=== PATIENT | female | born 1960 | race Caucasian/White ===

== ENCOUNTER 2017-08-01 17:01 | Inpatient (IN) | payer MEDICAID ==
--- NOTE | 2017-08-01 18:33 | EDPHY ---
H & P Stated Complaint: l sided abd pain /cervical cancer Time Seen by Provider: 08/01/17 17:33 HPI/ROS: CHIEF COMPLAINT: Left-sided abdominal pain HISTORY OF PRESENT ILLNESS: 56-year-old female with newly diagnosed cervical cancer presents with left-sided abdominal pain. 1 month ago she had the acute onset of left sided abdominal pain and ultimately was diagnosed with ureteral obstruction from a tumor. Bilateral ureteral stents were placed and further diagnostic studies revealed locally advanced cervical cancer. She has not received treatment for the cervical cancer yet. Planning for XRT and chemotherapy. Onset left-sided abdominal pain this morning. The pain was severe and has waxed and waned throughout the day. Associated with chills and possible fever. This pain is different from the pain she had 1 month ago. REVIEW OF SYSTEMS: complete 10 point ROS negative except at noted in the HPI - Personal History LMP (Females 10-55): Post Menopausal Current Tetanus Diphtheria and Acellular Pertussis (TDAP): No - Medical/Surgical History Hx Asthma: No Hx Chronic Respiratory Disease: No Hx Diabetes: No Hx Cardiac Disease: No Hx Renal Disease: Yes Hx Cirrhosis: No Hx Alcoholism: No Hx HIV/AIDS: No Hx Splenectomy or Spleen Trauma: No Other PMH: bilat kidney stents/cervical cancer - Social History Smoking Status: Never smoked Alcohol Use: Sober - Physical Exam Exam: General Appearance: Alert, pleasant Eyes: Pupils equal and round, no conjunctival pallor or injection ENT, Mouth: Mucous membranes moist Neck: Normal inspection Respiratory: Lungs are clear to auscultation Cardiovascular: Regular rate and rhythm Gastrointestinal: Abdomen is soft, slight left upper quadrant tenderness Neurological: A&O, nonfocal exam Skin: Warm and dry, no rash Extremities: Nontender, no pedal edema Psychiatric: Mood and affect normal Constitutional: Initial Vital Signs Temperature (C) 36.3 C 08/01/17 17:06 Heart Rate 94 08/01/17 17:06 Respiratory Rate 18 08/01/17 17:06 Blood Pressure 108/64 08/01/17 17:06 O2 Sat (%) 100 08/01/17 17:06 O2 Delivery Mode Room Air Allergies/Adverse Reactions: Sulfa (Sulfonamide Antibiotics) Allergy (Verified 08/02/17 15:08) Hives artificial sweeteners Allergy (Uncoded 08/01/17 17:06) Home Medications: Medication Instructions Recorded Acetaminophen [Tylenol ES 500 mg 1,000 mg PO Q8H PRN 08/01/17 (*)] Herbals/Supplements -Info Only 1 ea PO DAILY 08/01/17 Medical Decision Making ED Course/Re-evaluation: This patient presents with left upper quadrant pain. Urinalysis reveals urinary tract infection. CT scan discussed with Dr. Tracy Quintero reveals moderate hydronephrosis, severe constipation and rectal inflammation. Clinical scenario consistent with infected ureteral stent, ?rectal obstruction. Urine culture sent. Rocephin 1 g IV given. Morphine IV given for pain control. The hospitalist service was consulted for admission. Differential Diagnosis: Differential diagnosis includes though it is not limited to appendicitis, cholecystitis, diverticulitis, pyelonephritis, bowel perforation, small bowel obstruction. - Data Points Laboratory Results: Laboratory Results 08/02/17 04:20 08/02/17 04:20 Microbiology Results: MICROBIOLOGY 08/01/17 18:33 Urine,Clean Catch Urine Culture - Final Escherichia Coli Strep Agalactiae Group B Medications Given: Acetaminophen (Tylenol) 650 mg PO Q4HRS PRN PRN Reason: Pain, Mild/Fever, Can Take PO Stop: 01/28/18 22:09 Last Admin: 08/03/17 11:18 Dose: 650 mg Enoxaparin Sodium (Lovenox) 40 mg SC DAILY MICAELA Stop: 01/29/18 08:59 Last Admin: 08/03/17 09:29 Dose: Not Given Ceftriaxone Sodium/Dextrose (Rocephin 1 Gm (Premix)) 50 mls @ 100 mls/hr IV DAILY@2100 MICAELA PRN Reason: Protocol Stop: 09/01/17 20:59 Last Admin: 08/02/17 20:54 Dose: 50 mls Polyethylene Glycol (Miralax) 17 gm PO DAILY PRN; Protocol PRN Reason: Constipation, patient prefers Stop: 01/28/18 23:15 Last Admin: 08/02/17 10:12 Dose: 17 gm Discontinued Medications Hydromorphone HCl (Dilaudid) 0.5 mg IVP EDNOW ONE Stop: 08/01/17 19:52 Last Admin: 08/01/17 19:54 Dose: 0.5 mg Ceftriaxone Sodium/Dextrose (Rocephin 1 Gm (Premix)) 50 mls @ 100 mls/hr IV EDNOW ONE PRN Reason: Protocol Stop: 08/01/17 19:03 Last Admin: 08/01/17 18:51 Dose: 50 mls Pyridoxine HCl (Vitamin B-6) 25 mg PO DAILY MICAELA Stop: 01/30/18 09:29 Last Admin: 08/03/17 10:50 Dose: Not Given Senna/Docusate Sodium (Senokot-S) 1 - 2 tab PO BID MICAELA PRN Reason: Protocol Stop: 01/29/18 08:59 Last Admin: 08/02/17 08:32 Dose: 2 tab Departure - Departure Disposition: [place] In[facility] Acute Clinical Impression: Infection associated with indwelling ureteral stent Qualifiers: Encounter type: initial encounter Qualified Code(s): T83.592A - Infection and inflammatory reaction due to indwelling ureteral stent, initial encounter Cervical cancer Qualifiers: Malignant neoplasm of cervix location: unspecified location Qualified Code(s): C53.9 - Malignant neoplasm of cervix uteri, unspecified Condition: Fair
[2017-08-01 18:44] LABS: PLATELET COUNT 187 10^3/uL (150-400)
[2017-08-01] MEDS ORDERED: IOPAMIDOL (ISOVUE-300) 100 ML BTL ONE (19:04)
[2017-08-01] MEDS ORDERED: HYDROmorphONE/DILAUDID 2 MG/ML INJ IVP ONE (19:51)
[2017-08-01] MEDS ORDERED: ONDANSETRON DISINTEGRATING 4 MG TAB PO PRN (22:10)
[2017-08-01] MEDS ORDERED: ONDANSETRON 4 MG/2 ML VIAL IVP PRN (22:10)
--- NOTE | 2017-08-01 23:02 | PDGENHP ---
History and Physical - Chief Complaint Abdominal pain - History of Present Illness 56 yo F w/ recently diagnosed cervical CA presents with abdominal pain. Starting today she noted left sided abdominal pain that evolved into flank pain. She also noted chills and mild dysuria. She presented to the ED where a UA was consistent with infection. Her recent clinical course is notable for bilateral ureteral stent placement. The excerpt below from radiation oncologist at [facility] Dr. Jurado explains her course well: "This is a very pleasant 56-year-old female who developed left lower quadrant abdominal pain on 06/20/17. She presented to the emergency department in [place] where a CT scan without contrast revealed bilateral hydroureter and hydronephrosis. There was no comment about any cervical mass or adenopathy. She was transferred to [facility] where she had a cystoscopy with bilateral ureteral stent placement. During cystoscopy, a bulge was appreciated at the trigone of the bladder consistent with an obstructing mass thought to originate within the cervix. A pelvic exam performed at the end of procedure did confirm a cervical mass. She was evaluate a by ObGyn during her stay and a nodular cervical mass was also appreciated. She was then referred to Dr. Khan on 06/27/17. He appreciated a nodular hard cervical mass and performed a biopsy revealing invasive moderately to poorly differentiated squamous cell carcinoma that was P16 positive (High-Risk HPV). She had a PET/CT scan performed on revealing a 1.5 cm hypermetabolic mass with in the lower uterine segment. The maximum SUV was 6.3. There was improved bilateral hydronephrosis and no evidence of metastatic adenopathy or distant metastatic disease. She comes in today to discuss definitive treatment for her FIGO/AJCC group stage IIIB cervical cancer." History Information - Allergies/Home Medication List Allergies/Adverse Reactions: Sulfa (Sulfonamide Antibiotics) Allergy (Verified 08/01/17 17:06) artificial sweeteners Allergy (Uncoded 08/01/17 17:06) Home Medications: Acetaminophen [Tylenol ES 500 mg (*)] 1,000 mg PO Q8H PRN 08/01/17 [Last Taken 08/01/17 12:00] Herbals/Supplements -Info Only 1 ea PO DAILY 08/01/17 [Last Taken 07/31/17] I have personally reviewed and updated: family history, medical history - Past Medical History cancer (Cervical) - Surgical History Additional surgical history: Bilateral ureteral stent placement - Family History Positive for: cancer (Colon, prostate) - Social History Smoking Status: Never smoked Alcohol Use: Sober Review of Systems Review of Systems: ROS: 10pt was reviewed & negative except for what was stated in HPI & below Physical Exam Physical Exam: Temp Pulse Resp BP Pulse Ox 36.8 C 98 16 111/62 94 08/01/17 22:47 08/01/17 22:47 08/01/17 22:47 08/01/17 22:47 08/01/17 22:47 Constitutional: no apparent distress, not in pain Eyes: PERRL, EOMI Ears, Nose, Mouth, Throat: moist mucous membranes, no oral mucosal ulcers Cardiovascular: regular rate and rhythym, no murmur, rub, or gallop Respiratory: no respiratory distress, clear to auscultation Gastrointestinal: normoactive bowel sounds, soft, non-tender abdomen Genitourinary: other (+L CVAT) Skin: warm, normal color Musculoskeletal: full muscle strength, no muscle tenderness Neurologic: AAOx3, CN II-XII Intact Psychiatric: interacting appropriately, not anxious Lab Data & Imaging Review 08/01/17 18:01 08/01/17 18:01 WBC 14.13 10^3/uL (3.80-9.50) H 08/01/17 18: RBC 4.36 10^6/uL (4.18-5.33) 08/01/17 18:01 Hgb 13.1 g/dL (12.6-16.3) 08/01/17 18:01 Hct 38.5 % (38.0-47.0) 08/01/17 18:01 MCV 88.3 fL (81.5-99.8) 08/01/17 18:01 MCH 30.0 pg (27.9-34.1) 08/01/17 18: MCHC 34.0 g/dL (32.4-36.7) 08/01/17 18:01 RDW 13.5 % (11.5-15.2) 08/01/17 18: Plt Count 187 10^3/uL (150-400) 08/01/17 18:01 MPV 11.3 fL (8.7-11.7) 08/01/17 18:01 Neut % (Auto) 81.1 % (39.3-74.2) H 08/01/17 18:01 Lymph % (Auto) 8.5 % (15.0-45.0) L 08/01/17 18:01 [place] % (Auto) 6.3 % (4.5-13.0) 08/01/17 18:01 Eos % (Auto) 3.3 % (0.6-7.6) 08/01/17 18:01 Baso % (Auto) 0.4 % (0.3-1.7) 08/01/17 18:01 Nucleat RBC Rel Count 0.0 % (0.0-0.2) 08/01/17 18:01 Absolute Neuts (auto) 11.46 10^3/uL (1.70-6.50) H 08/01/17 18:01 Absolute Lymphs (auto) 1.20 10^3/uL (1.00-3.00) 08/01/17 18:01 Absolute Monos (auto) 0.89 10^3/uL (0.30-0.80) H 08/01/17 18:01 Absolute Eos (auto) 0.46 10^3/uL (0.03-0.40) H 08/01/17 18:01 Absolute Basos (auto) 0.06 10^3/uL (0.02-0.10) 08/01/17 18:01 Absolute Nucleated RBC 0.00 10^3/uL (0-0.01) 08/01/17 18:01 Immature Gran % 0.4 % (0.0-1.1) 08/01/17 18:01 Immature Gran # 0.06 10^3/uL (0.00-0.10) 08/01/17 18:01 Sodium 138 mEq/L (135-145) 08/01/17 18:01 Potassium 4.1 mEq/L (3.3-5.0) 08/01/17 18:01 Chloride 102 mEq/L (97-110) 08/01/17 18:01 Carbon Dioxide 15 mEq/l (22-31) L 08/01/17 18:01 Anion Gap 21 mEq/L (8-16) H 08/01/17 18:01 BUN 23 mg/dL (7-23) 08/01/17 18:01 Creatinine 1.2 mg/dL (0.6-1.0) H 08/01/17 18:01 Estimated GFR 47 08/01/17 18:01 Glucose 77 mg/dL (70-100) 08/01/17 18:01 Calcium 10.3 mg/dL (8.5-10.4) 08/01/17 18:01 Urine Color YELLOW 08/01/17 17:00 Urine Appearance MODERATELY TURBID 08/01/17 17:00 Urine pH 5.0 (5.0-7.5) 08/01/17 17:00 Ur Specific [place] 1.015 (1.002-1.030) 08/01/17 17:00 Urine Protein 2+ (NEGATIVE) H 08/01/17 17:00 Urine Ketones 1+ (NEGATIVE) H 08/01/17 17:00 Urine Blood 3+ (NEGATIVE) H 08/01/17 17:00 Urine Nitrate POSITIVE (NEGATIVE) H 08/01/17 17:00 Urine Bilirubin NEGATIVE (NEGATIVE) 08/01/17 17:00 Urine Urobilinogen NEGATIVE EU (0.2-1.0) 08/01/17 17:00 Ur Leukocyte Esterase 3+ (NEGATIVE) H 08/01/17 17:00 Urine RBC 50-182 /hpf (0-3) H 08/01/17 17:00 Urine WBC 50-182 /hpf (0-3) H 08/01/17 17:00 Ur Epithelial Cells TRACE /lpf (NONE-1+) 08/01/17 17:00 Urine Bacteria 3+ /hpf (NONE SEEN) H 08/01/17 17:00 Urine Mucus TRACE /lpf (NONE-1+) 08/01/17 17:00 Urine Glucose NEGATIVE (NEGATIVE) 08/01/17 17:00 Imaging Review: Imaging Impressions Abdomen CT 08/01/17 18:59 Impression: 1. Moderate left-sided hydronephrosis. Whether this correlates to a nonfunctional stent is debatable. It seems that patients with ureteral stents almost always have some degree of hydronephrosis by imaging that may or may not correlate to functionality of the stents. Discussion with Urology is suggested. 2. Small right kidney suggestive of chronic right renal insufficiency. 3. Severe constipation, with multiple pills scattered throughout the colon. 4. Circumferential rectal wall thickening for a long segment of the rectum distally. Indistinct fat plane between the lower uterine segment and the rectum. This raises the differential of cervical cancer invasion to the rectum. 5. Focal high-grade narrowing in the mid rectum due to circumferential wall thickening. Could this be the cause of severe constipation? Has the patient had bowel habit change? Findings and recommendations discussed with Vangie Feng M.D., at 8:53 p.m. , August 01, 2017. Final report concurs with initial preliminary interpretation. E:amm Assessment & Plan Assessment: 56 yo F w/ cervical CA p/w UTI in the setting of recently placed ureteral stent. Plan: 1. Complicated UTI - Symptoms x1 day, UA grossly infectious with WBC of 14k. Patient has been afebrile and hemodynamically stable while here. Associated with recently placed ureteral stent. - CTX 1 gD, urine culture pending, would treat for at least 7 days - Unfortunately, blood cultures not drawn prior to antibiotics. I will have them drawn if she begins to display signs of a systemic inflammatory responsive , otherwise I will hold off - Case discussed with Dr. Gutierrez 2. Moderate L sided hydronephrosis - This is improved from CT imaging performed in June at outside facility. Noting her renal function is improving, this may be somewhat chronic. As long as patient continues to improve it is probably appropriate for outpatient follow up. 3. Cervical cancer - FIGO/AJCC group stage IIIB cervical cancer; she has undergone planning for chemo/XRT at [facility] with Dr. Trevor Jurado. - Will not consult our oncologists for now noting she already has a treatment plan in place elsewhere 4. Constipation -Could be related to rectal narrowing from cancerous invasion. - Will start gentle bowel regimen, titrate as necessary 5. Rectal wall thickening - Possibly suggestive of cervical CA invasion into the rectum. Interestingly, this was not commented on during pelvic MRI [facility] 07[facility]27[facility] 6. Elevated serum creatinine - 1.2 on admission; review of records reveals recent value of 1.5 on labs drawn 06/21 at [facility]. Patient tells me she had ureteral dilation as a child so there may be a chronic component. - Monitor BMP - Avoid nephrotoxic agents Diet - Regular Code - Full Ppx - LMWH Dispo - Admit under observation status
[2017-08-01] MEDS ORDERED: BISACODYL 10 MG SUPP PR PRN (23:16)
[2017-08-01] MEDS ORDERED: POLYETHYLENE GLYCOL 3350 17 GM PKT PO PRN (23:16)
[2017-08-01] MEDS ORDERED: MAGNESIUM HYDROXIDE 30 ML UDCUP PO PRN (23:16)
[2017-08-01] MEDS ORDERED: LACTULOSE 20 GM/30 ML UDCUP PO PRN (23:16)
[2017-08-01] MEDS: ACETAMINOPHEN 325 MG TAB PO PRN (23:23)
[2017-08-02] MEDS: ACETAMINOPHEN 325 MG TAB PO PRN ×4 (04:20→20:48)
[2017-08-02 05:26] LABS: PLATELET COUNT 176 10^3/uL (150-400)
[2017-08-02] MEDS: ENOXAPARIN 40 MG/0.4 ML SYR SC SCH (08:33)
[2017-08-02] MEDS ORDERED: SENNOSIDES/DOCUSATE SODIUM TAB PO SCH (09:00)
--- NOTE | 2017-08-02 12:37 | ASMTCMCOM ---
CM Note CM Note Notes: CM reviewed Pt's chart for D/C planning. Pt is a 56 y/o/ female with a diagnosis of cervical cancer and a h/o bilateral uretal stent placement.. She is presenting today with abdominal pain, chills and pain upon urinating. She has a BF, alexander #[phone] and a brother Billy # [phone]. D/C plans are not clear at this point. CM will follow. D/C Plan: TBD Date Signed: 08/02/2017 12:36 PM Electronically Signed By:Macarena Dunlap
--- NOTE | 2017-08-02 13:55 | HOSPPROG ---
Hospitalist Progress Note Assessment/Plan: * Left flank pain - feels similar to pain prior to ureteral stent -left hydro behind stent - compared with previous scan - may be chronic -check Mag 3 with Lasix -clinically non-toxic - don't think nephrostomy tube emergently indicated * UTI vs. pyelo -IV ceftriaxone pending culture * High grade rectal stricture with constipation/stuck pills behind obstruction -d/w Dr. [facility] - no options endoscopically due to risk of rupture -surgical consult * Locally advanced cervical cancer -has not yet started chemo/XRT * CKD - creatinine better than baseline Subjective: Had some BM today Objective: Vital Signs Temp Pulse Resp BP Pulse Ox 36.8 C 92 16 101/62 95 08/02/17 07:21 08/02/17 07:21 08/02/17 07:21 08/02/17 07:21 08/02/17 07:21 Laboratory Results 08/02/17 04:20 08/02/17 04:20 08/01/17 08/02/17 08/03/17 05:59 05:59 05:59 Intake Total 820 Output Total 550 500 Balance 270 -500 CT abd reviewed - high grade rectal obstruction, ureteral stent with possible obstruction - Physical Exam Constitutional: no apparent distress, appears nourished, not in pain Cardiovascular: regular rate and rhythym, no murmur, rub, or gallop Respiratory: no respiratory distress, no rales or rhonchi, clear to auscultation Gastrointestinal: normoactive bowel sounds, soft, non-tender abdomen, no palpable masses Skin: no rashes or abrasions, no fluctuance, no induration Neurologic: AAOx3, sensation intact bilaterally Psychiatric: interacting appropriately, not anxious, not encephalopathic, thought process linear ICD10 Worksheet Patient Problems: Problems Problem Status Onset Cervical cancer Acute Infection associated with indwelling ureteral stent Acute
--- NOTE | 2017-08-02 14:52 | PDMN ---
Medical Necessity Medical necessity: Change to IP, as of 08/02/17, per MD; los >2 mn for ongoing management of UTI vs pyelonephritis, high grade rectal stricture w/constipation & L flank pain; admit for further workup/monitoring, Surgery/ID consults & IV abx; hx cervical cancer; per progress note & order 08/02/17
--- NOTE | 2017-08-02 18:36 | SOAPPROG ---
SOAP Progress Note Assessment/Plan: Assessment: 56-year-old female with metastatic cervical cancer which appears to be partly obstructing her rectum causing constipation and small stools Abdomen soft nontender with mild distention and active bowel sounds May need to consider colostomy if she worsens with chemo radiation treatment Plan: Will review CT and plan on rectal exam and possible flex sig in the a.m./ risks and options fully discussed 08/02/17 18:35 08/06/17 11:25 Objective: Vital Signs Temp Pulse Resp BP Pulse Ox 37.3 C 90 16 121/70 H 98 08/02/17 14:55 08/02/17 14:55 08/02/17 14:55 08/02/17 14:55 08/02/17 14:55 08/01/17 08/02/17 08/03/17 05:59 05:59 05:59 Intake Total 100 Output Total 1000 Balance -900 ICD10 Worksheet Patient Problems: Problems Problem Status Onset Atrophic kidney, acquired Acute Cervical cancer Acute Hydronephrosis Acute Infection associated with indwelling ureteral stent Acute
[2017-08-03] MEDS: ACETAMINOPHEN 325 MG TAB PO PRN ×3 (02:03→20:36)
[2017-08-03 05:03] LABS: PLATELET COUNT 161 10^3/uL (150-400)
[2017-08-03] MEDS ORDERED: FUROSEMIDE 40 MG/4 ML VIAL ONE (08:04)
[2017-08-03] MEDS ORDERED: oxyCODONE IR 5 MG TAB PO PRN (08:29)
[2017-08-03] MEDS ORDERED: traMADol 50 MG TAB PO PRN (08:32)
[2017-08-03] MEDS: ENOXAPARIN 40 MG/0.4 ML SYR SC SCH (09:29)
[2017-08-03] MEDS ORDERED: PYRIDOXINE HCL 25 MG TAB PO SCH (09:30)
--- NOTE | 2017-08-03 12:14 | ASMTCMCOM ---
CM Note CM Note Notes: CM met with Pt. Pt struggling with her new diagnosis of cervical cancer. She was able to speak of the emotiona she's experienced and her coping skills which include thoroughly educating herself as this lends a sense of empowerment. She was able to tell her mother this morning and shared that she felt a burden lifted. She described an additional stong support network of her BF and friends,. Pt would like integrative care in addition to convential treatment. She is presently scheduled to see a radiologist who did not present as supportive of this. She will be given info on CC and is doing some research on her own. CM will follow. D/C Plans: TBD. Date Signed: 08/03/2017 12:13 PM Electronically Signed By:Macarena Dunlap
--- NOTE | 2017-08-03 14:41 | GCON ---
[f rep st] CONSULTATION MEDICAL ONCOLOGY CONSULTATION DATE OF CONSULTATION: 08/03/2017 REASON FOR CONSULTATION: Ongoing workup and management of carcinoma of the cervical uterus. RECOMMENDATIONS: 1. Agree with gastrointestinal workup with Dr. Damon to try to assess whether the patient needs urge nt surgery to relieve bowel obstruction. 2. If the patient requires surgery, that would take precedence over definitive therapy for her cervi julia cancer. 3. If the patient does not need urgent surgery, then I would recommend urgent initiation of therapy with combined modality radiation plus weekly cisplatin chemotherapy for definitive therapy for cervic al cancer. 4. We will need to pay close attention to the patient's renal function in view of her bilateral hydr onephrosis and stents. Of note, 93% of her renal function comes from her left kidney secondary to da mage to her right kidney at approximately the age of 4. ASSESSMENT: This 56-year-old white female from [place], [place], recently was diagnosed with stage IIIB moderately to poorly differentiated squamous cell carcinoma of the cervix. She is P16 positive . She apparently had a PET-CT scan at an outside institution, which revealed a 1.5 cm hypermetabolic mass in the lower uterine segment. She was felt to have stage IIIB cancer. Combined modality thera py was planned. It is not yet begun. Because of her abdominal cramping and bowel symptoms, she presented to the [facility]'s emerge ncy room where she is now here for further evaluation. The patient's support system is her boyfriend who lives in [place] here. Since the patient does not have evidence of widespread metastatic disease on PET-CT scan, she would b e treated with curative intent. PAST MEDICAL HISTORY: Essentially otherwise unremarkable. PAST SURGICAL HISTORY: Remarkable for stent placement and biopsy. FAMILY HISTORY: Remarkable for colon and prostate cancer. SOCIAL HISTORY: The patient does not smoke. She does not use alcohol. REVIEW OF SYSTEMS: Remarkable for no current nausea or vomiting. She does have periodic severe abdo lee ann cramping, especially in the left lower quadrant. She is having some bowel movements. She has lost approximately 5 pounds in weight. Ten-system review is otherwise unremarkable. PHYSICAL EXAMINATION: GENERAL: Reveals a thin, pleasant, alert, oriented woman. HEENT: Unremarkab le. LUNGS: Clear to auscultation. CARDIAC: Exam reveals a regular rate and rhythm. ABDOMEN: Exa m shows a distended abdomen with tenderness primarily in the left lower quadrant. There is no reboun d tenderness noted. LYMPH NODE: Exam shows no palpable adenopathy in the neck, axillae, or groin bi laterally. EXTREMITIES: Lower extremities show no edema. LABORATORY DATA: White count of 8.78, with a hemoglobin of 11.9 and a platelet count of 161,000. Ch emistry shows her creatinine is 1.1. Her albumin is normal at 3.5. Her calcium is normal at 9.5. Thank you very much for allowing us to participate in this pleasant woman's care. We look forward to assisting with her management. /[id number]/MODL
--- NOTE | 2017-08-03 16:13 | SOAPPROG ---
SOAP Progress Note Assessment/Plan: Assessment: Atrophic kidney, acquired Acute stent in and nonfx with stent, no changes Cervical cancer Acute Hydronephrosis Acute need continue stent, doubt need replaced and could consider nephrostomy tube but prefer stent Infection associated with indwelling ureteral stent Acute rx acute UTI with E. Coli and strep and consider Methenamine 1 gram bid and vitamin C 500 mg bid for attempted prevention of UTI after rx Plan: as noted above 08/04/17 13:27 Subjective: stable Objective: Vital Signs Temp Pulse Resp BP Pulse Ox 36.6 C 104 H 16 138/73 H 91 L 08/03/17 08:00 08/03/17 15:50 08/03/17 15:50 08/03/17 15:50 08/03/17 15:50 Laboratory Results 08/03/17 04:02 08/03/17 04:02 08/02/17 08/03/17 08/04/17 05:59 05:59 05:59 Intake Total 1300 Output Total 1600 700 Balance -300 -700 ICD10 Worksheet Patient Problems: Problems Problem Status Onset Atrophic kidney, acquired Acute Cervical cancer Acute Hydronephrosis Acute Infection associated with indwelling ureteral stent Acute - ICD10 Problem Qualifiers (1) Hydronephrosis (2) Atrophic kidney, acquired
--- NOTE | 2017-08-03 16:35 | HOSPPROG ---
Hospitalist Progress Note Assessment/Plan: * Locally advanced cervical cancer -may need to start inpatient chemo/XRT * Left hydro s/p recent stent -minimally functional right kidney - need to preserve function of left -slow flow through stent on renal scan -consider change stent vs. nephrostomy tube * UTI vs. pyelo -IV ceftriaxone pending culture -infected stent with partial obstruction - may need more prolonged abx -d/w Dr. Watson * High grade rectal stricture with constipation/stuck pills behind obstruction -Dr. Damon to explore today, if tight stricture may need surgical ostomy * Acute on chronic renal failure -all renal function through left kidney which is partially obstructed -urology to consult Subjective: No new complaints. Objective: Vital Signs Temp Pulse Resp BP Pulse Ox 36.6 C 104 H 16 138/73 H 91 L 08/03/17 08:00 08/03/17 15:50 08/03/17 15:50 08/03/17 15:50 08/03/17 15:50 Laboratory Results 08/03/17 04:02 08/03/17 04:02 08/02/17 08/03/17 08/04/17 05:59 05:59 05:59 Intake Total 1300 Output Total 1600 700 Balance -300 -700 case d/w Dr. watson, marti graff and diana - complex case as discussed above Renal scan - right kidney almost non-functional, left with hydro and slow flow through stent - Physical Exam Constitutional: no apparent distress, appears nourished, not in pain Cardiovascular: regular rate and rhythym, no murmur, rub, or gallop Respiratory: no respiratory distress, no rales or rhonchi, clear to auscultation Gastrointestinal: normoactive bowel sounds, soft, non-tender abdomen, no palpable masses Skin: no rashes or abrasions, no fluctuance, no induration Neurologic: AAOx3, sensation intact bilaterally Psychiatric: interacting appropriately, not anxious, not encephalopathic, thought process linear ICD10 Worksheet Patient Problems: Problems Problem Status Onset Atrophic kidney, acquired Acute Cervical cancer Acute Hydronephrosis Acute Infection associated with indwelling ureteral stent Acute
--- NOTE | 2017-08-03 18:32 | SOAPPROG ---
SOAP Progress Note Assessment/Plan: Assessment: 56-year-old female with metastatic cervical cancer which appears to be partly obstructing her rectum causing constipation and small stools Abdomen soft nontender with mild distention and active bowel sounds May need to consider colostomy if she worsens with chemo radiation treatment Plan: Will review CT and plan on rectal exam impossible for flex sig in the a.m. 08/02/17 18:35 08/03/17 18:31 Doing better today/ will arrange flex sig today/risks and options fully discussed Objective: Vital Signs Temp Pulse Resp BP Pulse Ox 36.5 C 84 16 145/81 H 97 08/03/17 17:09 08/03/17 17:09 08/03/17 17:09 08/03/17 17:09 08/03/17 17:09 Laboratory Results 08/03/17 04:02 08/03/17 04:02 08/02/17 08/03/17 08/04/17 05:59 05:59 05:59 Intake Total 1300 200 Output Total 1600 700 Balance -300 -500 ICD10 Worksheet Patient Problems: Problems Problem Status Onset Atrophic kidney, acquired Acute Cervical cancer Acute Hydronephrosis Acute Infection associated with indwelling ureteral stent Acute
--- NOTE | 2017-08-03 18:35 | POSTOPPROG ---
Post Op Note Date of Operation: 08/03/17 Surgeon: Pipe Damon Anesthesia: Other (Specify) (None) Pre-op Diagnosis: Rectal stenosis secondary to cervical cancer Post-op Diagnosis: Same Indication: Evaluate for surgery Procedure: Flex sig Findings: Rigid upper rectum at 15 cm secondary to invasive cancer/poor bowel prep an Inf/Abcess present in the surg proc area at time of surgery?: No Depth: Organ Space EBL: Minimal Complications: None Specimen(s): None Findings revealed rigid rectum up to 15 cm. I was unable to make the turn at 15 cm because of poor visibility from lack of bowel prep but the upper rectal passage appears to be open from the volume of stool present
--- NOTE | 2017-08-03 18:44 | SOAPPROG ---
RASHI Progress Note Assessment/Plan: Assessment: 56-year-old female with metastatic cervical cancer which appears to be partly obstructing her rectum causing constipation and small stools Abdomen soft nontender with mild distention and active bowel sounds May need to consider colostomy if she worsens with chemo radiation treatment Plan: Will review CT and plan on rectal exam impossible for flex sig in the a.m. 08/02/17 18:35 08/03/17 18:31 Doing better today/ will arrange flex sig today/risks and options fully discussed 08/03/17 18:42 Flex sig incomplete secondary to rigidity of the rectum and poor bowel prep with poor visibility Will do a gentle bowel cleanse and enemas and schedule Gastrografin enema in the a.m. Initially it does not appear that the patient needs a colostomy immediately probable need further evaluation Objective: Vital Signs Temp Pulse Resp BP Pulse Ox 36.5 C 84 16 145/81 H 97 08/03/17 17:09 08/03/17 17:09 08/03/17 17:09 08/03/17 17:09 08/03/17 17:09 Laboratory Results 08/03/17 04:02 08/03/17 04:02 08/02/17 08/03/17 08/04/17 05:59 05:59 05:59 Intake Total 1300 200 Output Total 1600 700 Balance -300 -500 ICD10 Worksheet Patient Problems: Problems Problem Status Onset Atrophic kidney, acquired Acute Cervical cancer Acute Hydronephrosis Acute Infection associated with indwelling ureteral stent Acute
--- NOTE | 2017-08-03 19:08 | GCON ---
[f rep st] CONSULTATION INFECTIOUS DISEASE CONSULTATION DATE OF CONSULTATION: 08/03/2017 Physician requesting consultation is Jenn Osman. REASON FOR CONSULTATION: Management of polymicrobial UTI and possible pyelonephritis in the setting of obstruction with stent in place. 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 While she was in [place] visiting her boyfriend, she developed left lower quadrant and left flank pain and presented to the emergency room for further evaluation. A CT scan was performed that showed significant left hydronephrosis and markedly thickened rectal wall which appears to be partially obstructing fecal flow with marked constipation with marked fecal material throughout the intestines. A urinalysis showed pyuria and a urine culture subsequently grew group B strep and E coli. E coli was suresh susceptible. The patient was started empirically on ceftriaxone on 08/01/2017. The patient's left lower quadrant pain and left-sided pain are significantly improved. She does have some ongoing general abdominal discomfort due to distention. She has not had any fever. She has lost approximately 5 pounds and has a low appetite due to early satiety. She denied specific dysuria but had some mild irritation of the urethra. This has also resolved. PAST MEDICAL HISTORY: Negative except for a new diagnosis of malignancy. 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 PAST SURGICAL HISTORY: She has now had a stent placement from a malignancy obstructing her left ureter and a biopsy. FAMILY HISTORY: Positive for colon cancer and prostate cancer in her father. SOCIAL HISTORY: She is self-employed, lives in [place]. No alcohol or tobacco. ALLERGIES: Sulfa causes hives, occurred in the . REVIEW OF SYSTEMS: A complete 10-point review of systems was performed and is negative except as mentioned in the HPI. PHYSICAL EXAM: VITAL SIGNS: T-max 38, T current 36.6, blood pressure 103/64, heart rate 86, respiratory rate 16, saturation 96% on room air. GENERAL: This is a pleasant, thin woman sitting up in a chair, no acute distress with fluent speech. Oropharynx: Fair dentition. Moist mucous membranes. NECK: Supple. No lymphadenopathy. CARDIOVASCULAR: Regular rate. No murmur. CHEST: Clear to auscultation bilaterally. ABDOMEN: Mildly distended. No peritoneal signs. Mild discomfort to palpation of bilateral lower quadrants. EXTREMITIES: No clubbing, cyanosis, or edema. SKIN: Without rash. NEUROLOGICAL: She was alert and oriented x4. Moving all 4 extremities equally and ambulating without difficulty. LABORATORY: White count on admission 16.8, today 8.7. Hematocrit 34.9, 161, platelets. Creatinine 1.2 on admission, today 1.1, reflecting a creatinine clearance of 45. Urine culture was obtained on admission, which showed 100,000 E coli and 60,000 group B strep. The E coli was suresh susceptible. CT scan, as per HPI, this was specifically reviewed by me along with Radiology. No clear evidence of a colonbladder fistula. Assessment and plan 56-year-old woman with underlying cervical cancer presents with left lower quadrant and left flank pain and found to have positive urine for suresh susceptible E coli and group B strep. Unfortunately blood cultures were not obtained on admission. With elevated white count and flank pain and a degree of hydronephrosis on the left there is concern for urinary tract infection and pyelonephritis on the left. White count improved with current management and symptoms resolved. 1. Agree with urologic evaluation to assess if left kidney needs hydronephrosis managed further 2. Continue ceftriaxone. At time of discharge can step-down to Augmentin to complete a total of 14 days of antibiotics due to concern for pyelonephritis Time 50 min with greater than 50% time spent with education and counseling of the patient regarding pyelonephritis and planned therapy. /[id number]/MODL MTDD
[2017-08-03] MEDS: SENNOSIDES/DOCUSATE SODIUM TAB PO SCH (20:25)
[2017-08-03] MEDS: LACTULOSE 20 GM/30 ML UDCUP PO SCH (20:28)
[2017-08-03] MEDS: POLYETHYLENE GLYCOL 3350 17 GM PKT PO SCH (20:28)
[2017-08-04] MEDS: POLYETHYLENE GLYCOL 3350 17 GM PKT PO SCH (07:52)
[2017-08-04] MEDS: SENNOSIDES/DOCUSATE SODIUM TAB PO SCH (07:52)
[2017-08-04] MEDS: LACTULOSE 20 GM/30 ML UDCUP PO SCH ×2 (07:52→16:41)
[2017-08-04] MEDS: ACETAMINOPHEN 325 MG TAB PO PRN ×2 (07:57→16:41)
--- NOTE | 2017-08-04 08:53 | SOAPPROG ---
SOAP Progress Note Assessment/Plan: Assessment: 56 y/o F with advanced cervical CA admitted for constipation due to rectal invasion s/p flex sig yesterday that was unsuccessful due to poor prep and poor visibility S: No complaints. Feels bloated, but denies pain. Passing BMs with aggressive laxative use O: Alert Afebrile No increased WOB Abdomen: soft, but distended, nontender Plan: Gastrogafin enema today for both diagnostic and therapeutic purposes. She can likely be discharged pending findings. Will continue to follow. 08/04/17 08:48 Objective: Vital Signs Temp Pulse Resp BP Pulse Ox 36.6 C 80 16 109/68 97 08/04/17 07:39 08/04/17 07:39 08/04/17 07:39 08/04/17 07:39 08/04/17 07:39 Laboratory Results 08/03/17 04:02 08/04/17 04:05 08/03/17 08/04/17 08/05/17 05:59 05:59 05:59 Intake Total 1300 450 Output Total 1600 700 Balance -300 -250 ICD10 Worksheet Patient Problems: Problems Problem Status Onset Atrophic kidney, acquired Acute Cervical cancer Acute Hydronephrosis Acute Infection associated with indwelling ureteral stent Acute
--- NOTE | 2017-08-04 11:32 | SOAPPROG ---
RASHI Progress Note Assessment/Plan: E&M cervical cancer * Stage IIIb cervical cancer: Dr. Griggs has recommended combined modality therapy with cisplatin and radiation. But first we need to make sure that she does not require urgent surgery for impending bowel obstruction. If the enema looks fine then there is no oncological contraindication to going home. I have spoken to the hospitalist and she will let me know if the patient is discharged today and I will let Dr. Griggs now. Subjective: She is scheduled for an enema today. If that looks clear she is hoping to go home. She denies any acute complaints this morning. Objective: Vital Signs Temp Pulse Resp BP Pulse Ox 36.6 C 80 16 109/68 97 08/04/17 07:39 08/04/17 07:39 08/04/17 07:39 08/04/17 07:39 08/04/17 07:39 Laboratory Results 08/03/17 04:02 08/04/17 04:05 08/03/17 08/04/17 08/05/17 05:59 05:59 05:59 Intake Total 1300 450 Output Total 1600 700 Balance -300 -250 Physical Exam - Physical Exam General Appearance: no apparent distress Respiratory: lungs clear Cardiac/Chest: regular rate, rhythm Abdomen: normal bowel sounds, soft, distended ICD10 Worksheet Patient Problems: Problems Problem Status Onset Atrophic kidney, acquired Acute Cervical cancer Acute Hydronephrosis Acute Infection associated with indwelling ureteral stent Acute
--- NOTE | 2017-08-04 12:07 | PCMIDPN ---
Assessment/Plan: E coli and group B strep UTI and possible pyelonephritis with left hydronephrosis on CT scan, stent in place. Notably, patient with majority of her function coming from the left kidney (right is atrophic). No blood cultures obtained at admission. Creatinine is normal today --Seems like decompressing the left kidney more would be ideal for preservation of function. --patient out room getting enema when I rounded --patient on day # 4 of IV ceftriaxone. Patient could complete antibiotic therapy with 10 more days of Augmentin 875 twice daily for possible pyelonephritis. 1st dose of oral antibiotics could start tomorrow August 05. --no ID follow-up needed Objective: Vital Signs Temp Pulse Resp BP Pulse Ox 36.6 C 80 16 109/68 97 08/04/17 07:39 08/04/17 07:39 08/04/17 07:39 08/04/17 07:39 08/04/17 07:39 Laboratory Results 08/03/17 04:02 08/04/17 04:05 08/03/17 08/04/17 08/05/17 05:59 05:59 05:59 Intake Total 1300 450 Output Total 1600 700 Balance -300 -250 ICD10 Worksheet Patient Problems: Problems Problem Status Onset Atrophic kidney, acquired Acute Cervical cancer Acute Hydronephrosis Acute Infection associated with indwelling ureteral stent Acute
[2017-08-04 14:58] VITALS: BP 135/79
--- NOTE | 2017-08-04 16:55 | PDDCSUM ---
Discharge Summary Discharge Summary: Date of Admission: August 01, 2017 Date of Discharge: August 04, 2017 Discharge Diagnoses: Stage IIIB cervical cancer Left hydronephrosis, status post stent Acute UTI w/ possible pyelonephritis, improved Moderate rectal stricture Constipation, resolved KERVIN, resolved Admission Diagnoses: Complicated UTI Moderate left-sided hydronephrosis Cervical cancer-stage IIIB Constipation Rectal wall thickening Elevated creatinine Consultants: Urology-Dr. Slade Infectious Disease-Dr. Watson General surgery-Dr. Damon Oncology-Dr. Griggs [facility] Course: Patient is a 56-year-old female who recently diagnosed with cervical cancer who presented with abdominal pain and left-sided flank pain and constipation. She was found to have an acute UTI in association with recent ureteral stent placement. Patient had recently been diagnosed with stage IIIB cervical cancer resulting in bilateral hydronephrosis, for which she had received bilateral ureteral stents. Patient received IV antibiotics, which resulted in improvement. She also had rectal wall thickening on CT scan, for which she underwent a Gastrografin enema which revealed moderate stricture of the rectum and resulted in a bowel movement. Patient was feeling much better after 4 days of IV ceftriaxone and was discharged home with a course of oral Augmentin for 10 days. She is to follow up with Oncology for combined modality therapy with cisplatin and radiation. She may follow up with General surgery if she continues to have constipation, regarding any need for rectal surgery. She may follow up with additional specialists, including urologist, per recommendation of her oncologist. Physical Exam: General: The patient is a female who is alert and in no acute distress. HEENT: normocephalic, extraocular movements intact, conjunctivae clear, no lesions on face. Mucous membranes moist. Neck: trachea midline, no visible masses, no external lesions. Abd: soft and nondistended. Musculoskeletal: Normal muscle tone and bulk. Neuro: cranial nerves II XII grossly intact. Intact gross motor and sensory function. Psych: appropriate mood/affect. Skin: No pallor. Heme/lymph: No peripheral edema. Condition: Stable Discharged to: Home Pertinent tests/labs/imaging: Gastrografin enema-moderate structure measuring 1.2 cm involving the rectum about 6 7 m from the anus. Moderate constipation. Flexible sigmoidoscopy-rigid rectum up to 15 cm, rectum not visualized past 15 cm because of poor bowel prep. Renal NM scan- atrophy of right kidney with 93% contribution of renal function from the left kidney. +mild delay of transit from left kidney, likely secondary to ureteral stent. Adequate transit and excretion of atrophic right kidney. Medications: Please see med rec form. Gave Augmentin 875 mg tablets, 1 tablet p.o. Twice daily for 10 days. Sent Rx for methenamine 1gm BID and vitamin C 0.5gm BID x 30 days to pharmacy, in case patient wants to use this medicine for UTI prophylaxis after her Augmentin finishes. Special instructions: Return to hospital if symptoms return or worsen. Follow up: Follow up with Dr. Griggs the oncologist this week. Follow up with Dr. Damon the general surgeon this week if needed. > 30 minutes of total time was spent on counseling and coordination of care for this patient's discharge.
--- NOTE | 2017-08-04 19:35 | GOP ---
[f rep st] OPERATIVE REPORT DATE OF OPERATION: 08/03/2017 SURGEON: Pipe Damon MD PREOPERATIVE DIAGNOSIS: Cervical cancer and an anal rectal stricture. POSTOPERATIVE DIAGNOSIS: Cervical cancer and an anal rectal stricture. PROCEDURE PERFORMED: Flexible sigmoidoscopy. FINDINGS: The patient was found to have a clear rectum up to 15 cm, although there were some nodules in the wall of the rectum suggestive of invasive malignancy. Above 15 cm there was a tight curve an d the patient had no prep. So visibility was poor. It was not felt safe to try to pass through this narrowed spot. However, there was a large amount of stool coming through and did not appear to be si gnificantly obstructed at this point. DESCRIPTION OF PROCEDURE: Patient was in the GI lab, placed in the left lateral decubitus position. The anus was well lubricated. Rectal exam was done with the above-noted findings. A flex sig was i ntroduced and passed up to above 15 cm with the above-noted finding. The area was irrigated profusel y, but the stool could not be cleared enough to provide adequate visualization. The scope was withdr awn. She tolerated the procedure well. There was no sedation. /[id number]/MODL
[2017-08-05] MEDS ORDERED: AMOXICILLIN/CLAVULANATE POT 875/125 MG TAB PO SCH (09:00)
--- NOTE | 2017-08-08 11:01 | GCON ---
[f rep st] CONSULTATION DATE OF CONSULTATION: 08/02/2017 HISTORY OF PRESENT ILLNESS: The patient is a 56-year-old female who is undergoing treatment for meta static cervical cancer which appears to be partially obstructing her rectum as well as her left urete r. She presents and was admitted with severe constipation and pain with bowel movements. I was aske d to see her for evaluation. She has had bilateral ureteral stents placed. She has had a CT scan th at shows thickness and narrowing of the rectal wall. ALLERGIES: Sulfa. PRESENT MEDICATIONS: Tylenol. PAST MEDICAL HISTORY: Reveals cervical cancer which is recently diagnosed. She has had bilateral ur eteral stent placements. FAMILY HISTORY: Positive for other cancers, colon and prostate. SOCIAL HISTORY: She is a nonsmoker. REVIEW OF SYSTEMS: Negative on a full 10-point review except as related to the HPI. PHYSICAL EXAMINATION: GENERAL: An alert, thin 56-year-old female in no acute distress. HEAD and NE CK: Reveals no adenopathy, icterus or oral lesions. NECK: Supple, nontender without thyromegaly. CHEST: Clear. CARDIAC: Regular rhythm. ABDOMEN: Soft. Slightly distended, nontender with positi ve bowel sounds. RECTAL: Reveals some rectal discomfort and narrowing of the distal rectal vault bu t it is patent with stool present. EXTREMITIES: Benign. Full range of motion, full pulses. No efraín nopathy. NEUROLOGIC: Physiologic and symmetric. PSYCH: Reveals her to be alert, oriented, and marketing coordinator perative. IMPRESSION: Rectal stenosis secondary to metastatic cervical squamous cell cancer. She needs a rect al evaluation with flexible sigmoidoscopy and/or a better rectal exam and she may benefit from a dive rting colostomy depending on her response to chemotherapy and/or other treatments. I will follow her with you. /[id number]/MODL
== END 2017-08-04 18:31 | disposition home or self-care (01) | DRG 466 ==
LOC: F1N 22:31 → OBSVTOIN 08-02 13:49
PROVIDERS: ADMIT Family Medicine; ATTEND Internal Medicine
DX: T83.592A Infection and inflammatory reaction due to indwelling ureteral stent, initial encounter (principal); T81.4XXA Infection following a procedure, initial encounter; N17.9 Acute kidney failure, unspecified; N13.6 Pyonephrosis; C53.9 Malignant neoplasm of cervix uteri, unspecified; N39.0 Urinary tract infection, site not specified; K59.00 Constipation, unspecified
CPT/HCPCS: 96365; A9562; G0378; J0696; J1170; J1650; J1940; Q9967

== ENCOUNTER 2017-09-09 18:18 | Emergency (ER) | payer MEDICAID ==
--- NOTE | 2017-09-09 19:28 | EDPHY ---
H & P Time Seen by Provider: 09/09/17 19:19 HPI/ROS: CHIEF COMPLAINT: Left foot swelling HISTORY OF PRESENT ILLNESS: Patient is a 56-year-old female who presents emergency department with left foot swelling. The patient states that she sustained numerous insect bites to her feet last week while in [facility]. She has had mild swelling around her left foot. She feels it is slightly worse. There is no redness or warmth. He describes mild discomfort on her left leg. No leg swelling. She has had no chest pain or shortness of breath. No previous clots. No fevers or chills. REVIEW OF SYSTEMS: My complete review of systems is negative except as mentioned in the HPI. Past Medical/Surgical History: Includes kidneys stents, cervical cancer Smoking Status: Never smoked Physical Exam: Vitals noted GENERAL: Well-appearing, in no acute distress, alert. HEENT: Eyes normal to inspection, normal pharynx, no signs of dehydration. RESPIRATORY: Clear to auscultation bilaterally, no rales, rhonchi or wheezing. CVS: Regular rate and rhythm, no rubs, murmurs, or gallops. ABDOMEN: Soft, nontender, nondistended, no organomegaly. BACK: Normal to inspection, no CVA tenderness. SKIN: Normal color, no rash, warm, dry. No pallor. EXTREMITIES: Patient has minimal edema in the top of her left foot only. There is no significant tenderness to palpation. No erythema or warmth. Patient has multiple small insect bites that appeared to be healing. No calf tenderness, no Homans sign or cords, no joint swelling. NEURO/PSYCH: Alert and oriented x3, normal mood and affect, normal motor sensory exam. Constitutional: Initial Vital Signs Temperature (C) 36.7 C 09/09/17 18:27 Heart Rate 77 09/09/17 18:27 Respiratory Rate 18 09/09/17 18:27 Blood Pressure 124/74 H 09/09/17 18:27 O2 Sat (%) 99 09/09/17 18:27 O2 Delivery Mode Room Air Allergies/Adverse Reactions: Sulfa (Sulfonamide Antibiotics) Allergy (Verified 09/09/17 18:31) Hives artificial sweeteners Allergy (Uncoded 09/09/17 18:31) Home Medications: Medication Instructions Recorded Acetaminophen [Tylenol ES 500 mg 1,000 mg PO Q8H PRN 08/01/17 (*)] Herbals/Supplements -Info Only 1 ea PO DAILY 08/01/17 Amoxicillin/Clavulanate Pot 875 mg PO BID 10 Days #20 tab 08/04/17 [Augmentin 875 MG TAB (*)] Sennosides/Docusate Sodium 1 - 2 tab PO BID #100 tab 08/04/17 [Senokot-S] Ascorbic Acid [Vitamin C 500 mg 500 mg PO BID #60 tab 08/06/17 (*)] Methenamine Foreign [Hiprex 1 gm (*)] 1 gm PO BID #60 tab 08/06/17 Medical Decision Making - Diagnostics Imaging Results: Imaging Impressions Extremity Venous Study 09/09/17 19:28 Impression: No deep vein thrombosis in the left lower extremity. Results called and discussed with ITALO DE LA ROSA, at 09/09/2017 20:15 ED Course/Re-evaluation: In the emergency department I discussed possible etiologies with the patient. I answered all her questions. Patient has no warmth or erythema surrounding foot. I doubt infection. She did travel to [place] and she has some mild discomfort in her foot was swelling. Because of this she while ultrasound of her left lower extremity. Left lower extremity ultrasound: Please refer the dictated report. No acute disease noted. I discussed the results with the patient. I answered all her questions. She was given warnings. Differential Diagnosis: My differential includes but is not limited to cellulitis, abscess, DVT, edema, CHF Departure - Departure Disposition: Home, Routine, Self-Care Clinical Impression: Foot swelling Condition: Good Instructions: Insect Bite or Sting (ED) Additional Instructions: Return with increasing leg pain, swelling, fever or any other concerns. Referrals: Nasir Doyle DO [Doctor of Osteopathy] - 5-7 days, if not improved
[2017-09-09 20:31] VITALS: BP 120/68
== END 2017-09-09 20:31 | disposition home or self-care (01) ==
DX: R22.42 Localized swelling, mass and lump, left lower limb (principal); C53.8 Malignant neoplasm of overlapping sites of cervix uteri